=== PATIENT | male | born 1985 | race Caucasian/White ===

== ENCOUNTER 2023-10-24 15:10 | Emergency (ER) | payer OTHER ==
[~2023-10-24] VITALS: Ht 198.1 cm; Wt 88.0 kg
[2023-10-24] MEDS ORDERED: ACET-910 PO (15:29)
[2023-10-24] MEDS ORDERED: NEUR300C PO (15:29)
[2023-10-24] MEDS ORDERED: EQL50TAB2 PO (15:29)
[2023-10-24] MEDS ORDERED: LIDOCAINE W/EPINEPHRINE 1% 20ML VIAL SC ONE (16:45)
[2023-10-24] MEDS ORDERED: DOXYCYCLINE HYCLATE 100MG TABLET PO ONE (17:30)
[2023-10-24] MEDS ORDERED: DOXY-443 PO (17:30)
[2023-10-24] MEDS ORDERED: IBUPROFEN 600MG TAB PO ONE (17:30)
[2023-10-24 17:38] VITALS: BP 129/79; TEMP 99.7; O2SAT 99
[2023-10-24] MEDS ORDERED: IBUP-1022 PO (17:39)
== END 2023-10-24 17:41 | disposition home or self-care (01) ==
LOC: EEVIPCON 15:10 → M ED 15:10
DX: L02.411 Cutaneous abscess of right axilla (principal); L03.111 Cellulitis of right axilla

== ENCOUNTER 2024-06-14 10:43 | Emergency (ER) | payer OTHER ==
[~2024-06-14] VITALS: Ht 198.1 cm; Wt 70.4 kg
[~2024-06-14 10:43] MED LIST: ACET-910 PO; DOXY-323 PO; EQL50TAB2 PO; IBUP-1022 PO; NEUR300C PO
[2024-06-14 11:18] LABS: BASO # 0.1 10^3/uL (0.0-0.2); BASO % 0.8 % (0.0-1.0); EOS # 0.4 10^3/uL (0.0-0.5); HEMATOCRIT 41.6 % (42.0-52.0); HEMOGLOBIN 14.9 g/dl (13.5-17.5); MEAN CORPUSCULAR HEMOGLOBIN 31.5 pg (27.0-33.0); MEAN CORPUSCULAR HGB CONC 35.8 g/dl (32.0-36.5); MEAN CORPUSCULAR VOLUME 87.9 fl (80.0-96.0); MONO # 0.9 10^3/uL (0.0-0.8); MONO % 9.2 % (2.0-8.0); NEUTROPHILS # 6.1 10^3/uL (1.5-8.5); NEUTROPHILS % 64.7 % (36.0-66.0); PLATELET COUNT, AUTOMATED 201 10^3/uL (150-450); RED BLOOD COUNT 4.73 10^6/uL (4.30-6.10); WHITE BLOOD COUNT 9.5 10^3/uL (4.0-10.0)
[2024-06-14 11:32] LABS: INR 0.95; PROTHROMBIN TIME 12.4 SECONDS (12.5-14.5)
[2024-06-14 11:47] LABS: ALBUMIN 4.7 G/DL (3.2-5.2); BILIRUBIN,DIRECT 0.3 MG/DL (<0.4); CK-MB VALUE MASS 13.8 NG/ML (<3.6); MB/CK RELATIVE INDEX 1.99 (< OR =4); TOTAL PROTEIN 7.5 G/DL (5.7-8.2)
[2024-06-14] MEDS ORDERED: ISOVUE-370 76% 100ML VIAL As Ordered ONE (12:17)
[2024-06-14] MEDS ORDERED: KETO10TAB PO (13:00)
[2024-06-14] MEDS: KETOROLAC 30 MG/ML 1ML VIAL IV ONE (13:26)
[2024-06-14 13:40] VITALS: BP 117/63; TEMP 96.8; O2SAT 98
== END 2024-06-14 13:55 | disposition home or self-care (01) ==
LOC: M ED 10:43
DX: R07.89 Other chest pain (principal); I45.19 Other right bundle-branch block; F17.210 Nicotine dependence, cigarettes, uncomplicated; F10.10 Alcohol abuse, uncomplicated; Z79.1 Long term (current) use of non-steroidal anti-inflammatories (NSAID); Z79.2 Long term (current) use of antibiotics; Z79.899 Other long term (current) drug therapy
CPT/HCPCS: 71045; 71275; 80047; 80076; 82550; 82553; 83690; 84484; 85025; 85610; 93005; 93041; 94760; 96374; 99285; J1885; Q9967